=== PATIENT | male | born 1950 | race Caucasian/White ===

== ENCOUNTER 2021-02-03 14:20 | Inpatient (IN) | payer MEDICARE, OTHER ==
[~2021-02-03] VITALS: Ht 188 cm; Wt 104.3 kg
[~2021-02-03 14:20] MED LIST: ALLOPURINOL300 MG PO; CIALIS20 MG PO; DAPSONE100 MG PO; DIGITEK250 MCG PO; LASIX40 MG PO; METOPROLOL SUC100 MG PO; OMEGA-3 EC SOF1 EACH PO; PRAVASTATIN SOD40 MG PO; VALSARTAN40 MG PO; VITAMIN D325 MC3 PO; WARFARIN SODIU7.5 MG PO; WARFARIN SODIUM5 MG PO
[2021-02-03 16:39] LABS: BASOPHIL 0.3 % (0-2); EOSINOPHIL 1.4 % (0-7); HCT 39.8 % (42.0-52.0); HGB 13.5 g/dl (13.2-18.0); LYMPHOCYTE 20.1 % (15-48); MCH 35.4 pg (25.0-31.0); MCHC 33.9 g/dL (32.0-36.0); MCV 104.5 fL (78.0-100.0); MONOCYTE 9.9 % (0-12); MPV 9.8 fL (6.0-9.5); NEUTROPHIL 68.2 % (41-80); NRBC 0; PLT 184 K/uL (150-400); RBC 3.81 M/uL (4.70-6.00); RDW 12.2 % (11.5-14.0); WBC 7.3 K/uL (4.0-10.5)
[2021-02-03 16:55] LABS: INR 1.89 (0.9-1.2); PROTHROMBIN TIME 20.9 SECONDS (11.8-13.4)
[2021-02-03 17:01] LABS: BILIRUBIN NEGATIVE (NEGATIVE); BLOOD NEGATIVE Ery/uL (NEGATIVE); CLARITY CLEAR (CLEAR); COLOR YELLOW (YELLOW); GLUCOSE (U) NORMAL (NORMAL); LEUKOCYTES NEGATIVE Leu/uL (NEGATIVE); NITRITE NEGATIVE (NEGATIVE); PROTEIN NEGATIVE (NEGATIVE); UROBILINOGEN 0.2 mg/dL (0.2-1.0)
[2021-02-03 17:09] LABS: BUN/CREAT RATIO (CALC) 12.9 RATIO; CREATININE 0.85 mg/dL (0.67-1.17); POTASSIUM 4.5 mmol/L (3.5-5.1)
[2021-02-04 06:08] LABS: BASOPHIL 0.8 % (0-2); EOSINOPHIL 4.3 % (0-7); HCT 36.7 % (42.0-52.0); HGB 12.4 g/dl (13.2-18.0); LYMPHOCYTE 27.6 % (15-48); MCH 35.3 pg (25.0-31.0); MCHC 33.8 g/dL (32.0-36.0); MCV 104.6 fL (78.0-100.0); MONOCYTE 12.1 % (0-12); MPV 10.5 fL (6.0-9.5); NRBC 0; PLT 150 K/uL (150-400); RBC 3.51 M/uL (4.70-6.00); RDW 12.4 % (11.5-14.0); WBC 5.1 K/uL (4.0-10.5)
[2021-02-04 06:19] LABS: INR 1.97 (0.9-1.2); PROTHROMBIN TIME 21.6 SECONDS (11.8-13.4); PTT 38.7 SECONDS (24.4-34.7)
[2021-02-04 06:45] LABS: BILIRUBIN - TOTAL 0.7 mg/dL (0.2-1.0); BUN/CREAT RATIO (CALC) 9.9 RATIO; CREATININE 0.91 mg/dL (0.67-1.17); GLOBULIN (CALCULATION) 3.3 g/dL; MAGNESIUM 2.1 mg/dL (1.8-2.4); PHOSPHORUS 3.5 mg/dL (2.6-4.7); POTASSIUM 4.3 mmol/L (3.5-5.1); TOTAL PROTEIN 6.3 g/dL (6.4-8.2)
[2021-02-04] MEDS ORDERED: COUMARIN1 GM PO ×2 (10:56→10:58)
[2021-02-04] MEDS ORDERED: WARFARIN SODIU7.5 MG PO (11:00)
[2021-02-04] MEDS ORDERED: WARFARIN SODIUM5 MG PO (11:00)
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
== END 2021-02-04 15:00 | disposition home or self-care (01) | DRG 389 ==
LOC: FER 14:20 → FMS 19:12
PROVIDERS: Nurse Practitioner; Nurse Practitioner Family; ADMIT Allergy & Immunology Allergy
DX: K56.600 Partial intestinal obstruction, unspecified as to cause (principal); I48.20 Chronic atrial fibrillation, unspecified; Z20.822 Contact with and (suspected) exposure to COVID-19; I25.10 Atherosclerotic heart disease of native coronary artery without angina pectoris; I50.9 Heart failure, unspecified; K21.9 Gastro-esophageal reflux disease without esophagitis; Z98.890 Other specified postprocedural states; Z79.01 Long term (current) use of anticoagulants; Z79.899 Other long term (current) drug therapy; Z88.8 Allergy status to other drugs, medicaments and biological substances
CPT/HCPCS: 36415; 71045; 71275; 74250; 80048; 80053; 81003; 83735; 84100; 84484; 85025; 85610; 85730; 94010; C9113; J7030; Q9967; U0002